=== PATIENT | female | born 1970 | race Caucasian/White ===

== ENCOUNTER 2019-01-13 05:00 | Emergency (ER) | payer OTHER ==
[2019-01-13] MEDS ORDERED: ALBUTEROL NEBULIZED 2.5 MG/3 ML INHALATION STA (06:06)
--- NOTE | 2019-01-13 06:07 | ED ---
General Adult HPI - General Chief complaint: Shortness of Breath Stated complaint: Diff Breathing Time Seen by Provider: 01/13/19 05:31 Source: patient Mode of arrival: wheelchair Limitations: no limitations - History of Present Illness Initial comments: This is a 48-year-old female past medical history of asthma who also still smokes cigarettes daily. The patient presents to the emergency department today for evaluation of shortness of breath that has lasted throughout the night. Patient reports feeling as though she can't catch a deep breath. She also states that she began to feel like she couldn't swallow properly and had a look down her told her chin down to swallow. However that has resolved. Patient denies any chest pain, exertional symptoms, cough or recent illness. She denies any formal diagnosis of COPD though she did have asthma she reports she has not had an exacerbation in a number of years. She does not have any medications at home for asthma. - Related Data Home Medications Medication Instructions Recorded Confirmed Atorvastatin [Lipitor] 80 mg PO HS 01/13/19 01/13/19 Cyclobenzaprine [Flexeril] 10 mg PO TID 01/13/19 01/13/19 Furosemide [Lasix] 20 mg PO DAILY 01/13/19 01/13/19 Gabapentin [Neurontin] 100 mg PO BID 01/13/19 01/13/19 HYDROcodone/APAP 10-325MG [[place] 1 tab PO Q6HR PRN 01/13/19 01/13/19 10-325] Loratadine [Claritin] 10 mg PO DAILY PRN 01/13/19 01/13/19 Allergies Allergy/AdvReac Type Severity Reaction Status Date / Time amoxicillin Allergy Itching Verified 01/13/19 07:37 Review of Systems ROS Statement: Those systems with pertinent positive or pertinent negative responses have been documented in the HPI. ROS Other: All systems not noted in ROS Statement are negative. Past Medical History Past Medical History: Hyperlipidemia Additional Past Medical History / Comment(s): back pain History of Any Multi-Drug Resistant Organisms: None Reported Past Surgical History: Cholecystectomy, Orthopedic Surgery, Tubal Ligation Additional Past Surgical History / Comment(s): right knee, S1 L5 LS laminectomy Past Psychological History: No Psychological Hx Reported Smoking Status: Current every day smoker Past Alcohol Use History: None Reported Past Drug Use History: None Reported General Exam - General Exam Comments Initial Comments: Physical Exam GENERAL: Patient is well-developed and well-nourished. Patient is nontoxic and well-hydrated and is in no distress. HENT: Normocephalic, Atraumatic. EYES: PERRL, EOMI PULMONARY: Unlabored respirations. No audible rales rhonchi or wheezing was noted. CARDIOVASCULAR: There is a regular rate and rhythm without any murmurs gallops or rubs. ABDOMEN: Soft and nontender with normal bowel sounds. SKIN: Skin is clear with no lesions or rashes and otherwise unremarkable. : Deferred NEUROLOGIC: Patient is alert and oriented x3. Moving all extremities spontaneously MUSCULOSKELETAL: Normal extremities with adequate strength and full range of motion. No lower extremity swelling or edema. No calf tenderness. PSYCHIATRIC: Anxious appearing Limitations: no limitations Course Vital Signs 01/13/19 01/13/19 01/13/19 05:06 05:09 06:24 Temperature 98.3 F Pulse Rate 96 88 Respiratory 19 18 20 Rate Blood Pressure 163/94 O2 Sat by Pulse 96 Oximetry 01/13/19 01/13/19 06:34 07:29 Temperature 98.6 F Pulse Rate 90 92 Respiratory 20 19 Rate Blood Pressure 168/85 O2 Sat by Pulse 96 Oximetry EKG Findings - EKG Comments: EKG Findings:: KG was obtained due to complaint of trouble breathing. EKG was obtained at 5:31 AM, rate is 93 rhythm is sinus, there are P and T-wave inversions in V1 no acute ST elevations or depressions no evidence of acute ischemia or infarction. Medical Decision Making - Medical Decision Making The patient was seen and evaluated, history is obtained from the patient As the patient has had multiple hours of feeling as though she cannot catch her breath. She reports that that improved upon arrival in the emergency department EKG is nonischemic no tachycardia Labs resulted witn abnormalities evaluated after receiving a breathing treatment. She reports complete resolution of her symptoms. Patient's has brought her [employer] and she is eating breakfast at bedside. Patient's resting comfortably and is comfortable with the plan for discharge home. All questions pertaining care were answered return parameters were discussed patient was discharged home in stable condition - Lab Data Result diagrams: 01/13/19 06:18 01/13/19 06:18 Lab Results 01/13/19 01/13/19 01/13/19 Range/Units 06:18 06:18 06:18 WBC 9.4 (3.8-10.6) k/uL RBC 5.01 (3.80-5.40) m/uL Hgb 12.8 (11.4-16.0) gm/dL Hct 40.6 (34.0-46.0) % MCV 80.9 (80.0-100.0) fL MCH 25.5 (25.0-35.0) pg MCHC 31.5 (31.0-37.0) g/dL RDW 16.5 H (11.5-15.5) % Plt Count 232 (150-450) k/uL Neutrophils % 78 % Lymphocytes % 12 % Monocytes % 6 % Eosinophils % 2 % Basophils % 0 % Neutrophils # 7.3 (1.3-7.7) k/uL Lymphocytes # 1.1 (1.0-4.8) k/uL Monocytes # 0.6 (0-1.0) k/uL Eosinophils # 0.2 (0-0.7) k/uL Basophils # 0.0 (0-0.2) k/uL Anisocytosis Slight PT 9.7 (9.0-12.0) sec INR 0.9 (<1.2) APTT 24.0 (22.0-30.0) sec Sodium 139 (137-145) mmol/L Potassium 4.2 (3.5-5.1) mmol/L Chloride 107 (98-107) mmol/L Carbon Dioxide 25 (22-30) mmol/L Anion Gap 7 mmol/L BUN 7 (7-17) mg/dL Creatinine 0.76 (0.52-1.04) mg/dL Est GFR (CKD-EPI)AfAm >90 (>60 ml/min/1.73 sqM) Est GFR (CKD-EPI)NonAf >90 (>60 ml/min/1.73 sqM) Glucose 120 H (74-99) mg/dL Calcium 9.3 (8.4-10.2) mg/dL Magnesium 2.2 (1.6-2.3) mg/dL Total Bilirubin 0.3 (0.2-1.3) mg/dL AST 28 (14-36) U/L ALT 21 (9-52) U/L Alkaline Phosphatase 103 (38-126) U/L Troponin I (0.000-0.034) ng/mL Total Protein 7.3 (6.3-8.2) g/dL Albumin 4.2 (3.5-5.0) g/dL 01/13/19 Range/Units 06:18 WBC (3.8-10.6) k/uL RBC (3.80-5.40) m/uL Hgb (11.4-16.0) gm/dL Hct (34.0-46.0) % MCV (80.0-100.0) fL MCH (25.0-35.0) pg MCHC (31.0-37.0) g/dL RDW (11.5-15.5) % Plt Count (150-450) k/uL Neutrophils % % Lymphocytes % % Monocytes % % Eosinophils % % Basophils % % Neutrophils # (1.3-7.7) k/uL Lymphocytes # (1.0-4.8) k/uL Monocytes # (0-1.0) k/uL Eosinophils # (0-0.7) k/uL Basophils # (0-0.2) k/uL Anisocytosis PT (9.0-12.0) sec INR (<1.2) APTT (22.0-30.0) sec Sodium (137-145) mmol/L Potassium (3.5-5.1) mmol/L Chloride (98-107) mmol/L Carbon Dioxide (22-30) mmol/L Anion Gap mmol/L BUN (7-17) mg/dL Creatinine (0.52-1.04) mg/dL Est GFR (CKD-EPI)AfAm (>60 ml/min/1.73 sqM) Est GFR (CKD-EPI)NonAf (>60 ml/min/1.73 sqM) Glucose (74-99) mg/dL Calcium (8.4-10.2) mg/dL Magnesium (1.6-2.3) mg/dL Total Bilirubin (0.2-1.3) mg/dL AST (14-36) U/L ALT (9-52) U/L Alkaline Phosphatase (38-126) U/L Troponin I <0.012 (0.000-0.034) ng/mL Total Protein (6.3-8.2) g/dL Albumin (3.5-5.0) g/dL Disposition Clinical Impression: SOB (shortness of breath) Disposition: HOME SELF-CARE Condition: Stable Instructions (If sedation given, give patient instructions): Asthma (ED) Is patient prescribed a controlled substance at d/c from ED?: No Referrals: [facility] [Primary Care Provider] - 1-2 days
[2019-01-13 06:30] LABS: Anisocytosis Slight; Basophils % (A) 0 %; Eosinophils # (A) 0.2 k/uL (0-0.7); Eosinophils % (A) 2 %; HCT 40.6 % (34.0-46.0); HGB 12.8 gm/dL (11.4-16.0); Lymphocytes # (A) 1.1 k/uL (1.0-4.8); Lymphocytes % (A) 12 %; MCH 25.5 pg (25.0-35.0); MCHC 31.5 g/dL (31.0-37.0); MCV 80.9 fL (80.0-100.0); Mean Platelet Volume 8.2; Monocytes # (A) 0.6 k/uL (0-1.0); Monocytes % (A) 6 %; Neutrophils # (A) 7.3 k/uL (1.3-7.7); Neutrophils % (A) 78 %; Platelet Count 232 k/uL (150-450); RBC 5.01 m/uL (3.80-5.40); RDW 16.5 % (11.5-15.5); WBC 9.4 k/uL (3.8-10.6)
[2019-01-13 06:34] LABS: INR 0.9 (<1.2); Prothrombin Time 9.7 sec (9.0-12.0)
[2019-01-13 06:36] LABS: ALT 21 U/L (9-52); AST 28 U/L (14-36); African American GFR (CKD) >90 (>60 ml/min/1.73 sqM); Albumin 4.2 g/dL (3.5-5.0); Alkaline Phosphatase 103 U/L (38-126); Anion Gap 7 mmol/L; Blood Urea Nitrogen 7 mg/dL (7-17); Calcium 9.3 mg/dL (8.4-10.2); Carbon Dioxide 25 mmol/L (22-30); Chloride 107 mmol/L (98-107); Glucose 120 mg/dL (74-99); Magnesium 2.2 mg/dL (1.6-2.3); Potassium 4.2 mmol/L (3.5-5.1); Sodium 139 mmol/L (137-145); Total Bilirubin 0.3 mg/dL (0.2-1.3); Total Protein 7.3 g/dL (6.3-8.2)
--- NOTE | 2019-01-13 06:38 | XR ---
EXAM: XR Chest, 2 Views CLINICAL HISTORY: ITS.REASON XR Reason: difficulty breathing TECHNIQUE: Frontal and lateral views of the chest. COMPARISON: No relevant prior studies available. FINDINGS: Lungs: Unremarkable. No consolidation. Pleural space: Unremarkable. No pneumothorax. Heart: Unremarkable. No cardiomegaly. Mediastinum: Unremarkable. Bones/joints: Unremarkable. IMPRESSION: No evidence of acute cardiopulmonary disease.
[2019-01-13 07:31] VITALS: BP 168/85; PULSE 92; RESP 19; TEMP 98.6
== END 2019-01-13 07:46 | disposition home or self-care (01) ==
LOC: EC 05:00
DX: R06.02 Shortness of breath (principal); E78.5 Hyperlipidemia, unspecified; J45.909 Unspecified asthma, uncomplicated; F17.210 Nicotine dependence, cigarettes, uncomplicated; Z90.49 Acquired absence of other specified parts of digestive tract; Z98.51 Tubal ligation status; Z98.890 Other specified postprocedural states; Z79.899 Other long term (current) drug therapy; Z88.0 Allergy status to penicillin
CPT/HCPCS: 36415; 71046; 80053; 83735; 84484; 85025; 85610; 85730; 93005; 94640; 99285

== ENCOUNTER 2019-01-22 15:28 | Observation (INO) | payer OTHER ==
[2019-01-22 16:44] LABS: Anisocytosis Slight; Basophils % (A) 0 %; Eosinophils # (A) 0.1 k/uL (0-0.7); Eosinophils % (A) 1 %; HGB 12.8 gm/dL (11.4-16.0); Hypochromasia Slight; Lymphocytes # (A) 1.4 k/uL (1.0-4.8); Lymphocytes % (A) 8 %; MCHC 31.2 g/dL (31.0-37.0); MCV 83.5 fL (80.0-100.0); Mean Platelet Volume 8.8; Monocytes % (A) 6 %; Neutrophils % (A) 84 %; Platelet Count 282 k/uL (150-450); RBC 4.92 m/uL (3.80-5.40); RDW 17.2 % (11.5-15.5); WBC 17.9 k/uL (3.8-10.6)
[2019-01-22] MEDS ORDERED: IPRATROPIUM-ALBUTEROL 3 ML NEB INHALATION STA (16:46)
[2019-01-22 16:52] LABS: ALT 12 U/L (9-52); AST 26 U/L (14-36); African American GFR (CKD) >90 (>60 ml/min/1.73 sqM); Albumin 4.3 g/dL (3.5-5.0); Alkaline Phosphatase 84 U/L (38-126); Anion Gap 12 mmol/L; Blood Urea Nitrogen 8 mg/dL (7-17); Calcium 9.4 mg/dL (8.4-10.2); Carbon Dioxide 22 mmol/L (22-30); Chloride 106 mmol/L (98-107); Glucose 107 mg/dL (74-99); Potassium 4.2 mmol/L (3.5-5.1); Sodium 140 mmol/L (137-145); Total Bilirubin 0.2 mg/dL (0.2-1.3); Total Protein 7.8 g/dL (6.3-8.2)
[2019-01-22 17:04] LABS: INR 0.9 (<1.2); Prothrombin Time 9.5 sec (9.0-12.0)
[2019-01-22 17:06] LABS: Partial Thromboplastin Time 21.1 sec (22.0-30.0)
[2019-01-22 17:07] LABS: Magnesium 2.3 mg/dL (1.6-2.3); Phosphorus 3.3 mg/dL (2.5-4.5)
--- NOTE | 2019-01-22 17:09 | XR ---
EXAMINATION: XR chest 2V DATE AND TIME: 01/22/2019 4:51 PM CLINICAL INDICATION: PHH; Pain TECHNIQUE: Departmental protocol COMPARISON: 01/13/2019 FINDINGS: The lungs are clear. The pleural spaces are negative. The cardiac silhouette is not enlarged. The remainder of the mediastinal silhouette is unremarkable. The skeletal structures and soft tissues are negative for acute findings. IMPRESSION: Stable appearance when compared to the 01/13/2019 radiographs.
[2019-01-22 17:18] LABS: D-Dimer 0.26 mg/L FEU (<0.60)
--- NOTE | 2019-01-22 18:13 | ED ---
SOB HPI - General Chief Complaint: Shortness of Breath Stated Complaint: trouble breathing, Dehydration Time Seen by Provider: 01/22/19 16:39 Source: patient, RN notes reviewed, old records reviewed Mode of arrival: ambulatory Limitations: no limitations - History of Present Illness Initial Comments: This is a 48-year-old female the ER for evaluation shortness of breath cough and congestion, history of asthma with no recent hospital admissions. Patient has been seen in urgent care as well as here in the ER the last week and half for evaluation of similar complaints, denying chest pain recent travel history or sick contacts also having lower [place] edema. has no recent travel history or sick contacts that she knows. No history of DVTs. Patient's currently on outpatient steroids antibiotics and breathing treatment with no help MD Complaint: shortness of breath, cough -: week(s) Severity: moderate Severity scale (1-10): 5 Consistency: constant Improves With: rest Worsens With: exertion Known History Of: asthma Context: recent URI Associated Symptoms: cough, other (leg edema) Treatments Prior to Arrival: none - Related Data Home Medications Medication Instructions Recorded Confirmed Atorvastatin [Lipitor] 80 mg PO HS 01/13/19 01/22/19 Cyclobenzaprine [Flexeril] 10 mg PO TID 01/13/19 01/22/19 Furosemide [Lasix] 20 mg PO DAILY 01/13/19 01/22/19 Gabapentin [Neurontin] 100 mg PO BID 01/13/19 01/22/19 HYDROcodone/APAP 10-325MG [[place] 1 tab PO Q6HR PRN 01/13/19 01/22/19 10-325] Loratadine [Claritin] 10 mg PO DAILY PRN 01/13/19 01/22/19 Clindamycin HCl [Cleocin] 150 mg PO TID 01/22/19 01/22/19 Oxymetazoline 0.05% Nasl [place] 1 spray EA NOSTRIL BID PRN 01/22/19 01/22/19 [Afrin 0.05% Nasal [place]] methylPREDNISolone [Medrol Dose See Taper PO DIRECTED 01/22/19 01/22/19 Pack] Allergies Allergy/AdvReac Type Severity Reaction Status Date / Time amoxicillin Allergy Itching Verified 01/22/19 16:48 Review of Systems ROS Statement: Those systems with pertinent positive or pertinent negative responses have been documented in the HPI. ROS Other: All systems not noted in ROS Statement are negative. Past Medical History Past Medical History: Hyperlipidemia Additional Past Medical History / Comment(s): back pain History of Any Multi-Drug Resistant Organisms: None Reported Past Surgical History: Cholecystectomy, Orthopedic Surgery, Tubal Ligation Additional Past Surgical History / Comment(s): right knee, S1 L5 LS laminectomy Past Psychological History: No Psychological Hx Reported Smoking Status: Current every day smoker Past Alcohol Use History: None Reported Past Drug Use History: None Reported General Exam Limitations: no limitations General appearance: alert, in no apparent distress Head exam: Present: atraumatic, normocephalic, normal inspection Eye exam: Present: normal appearance, PERRL, EOMI. Absent: scleral icterus, conjunctival injection, periorbital swelling ENT exam: Present: normal exam, mucous membranes moist Neck exam: Present: normal inspection. Absent: tenderness, meningismus, lymphadenopathy Respiratory exam: Present: normal lung sounds bilaterally, wheezes. Absent: respiratory distress, rales, rhonchi, stridor Cardiovascular Exam: Present: normal rhythm, tachycardia, normal heart sounds. Absent: systolic murmur, diastolic murmur, rubs, gallop, clicks GI/Abdominal exam: Present: soft, normal bowel sounds. Absent: distended, tenderness, guarding, rebound, rigid Extremities exam: Present: normal inspection, full ROM, normal capillary refill. Absent: tenderness, pedal edema, joint swelling, calf tenderness Back exam: Present: normal inspection Neurological exam: Present: alert, oriented X3, CN II-XII intact Psychiatric exam: Present: normal affect, normal mood Skin exam: Present: warm, dry, intact, normal color. Absent: rash Course Vital Signs 01/22/19 01/22/19 01/22/19 15:34 16:59 17:07 Temperature 98.7 F Pulse Rate 105 H 88 86 Respiratory 16 Rate Blood Pressure 166/79 O2 Sat by Pulse 97 Oximetry 01/22/19 18:20 Temperature 98.8 F Pulse Rate 91 Respiratory 18 Rate Blood Pressure 148/85 O2 Sat by Pulse 99 Oximetry - Reevaluation(s) Reevaluation #1: 01/22/19 18:27 Medical record and prior ER visit in urgent care visit is reviewed for same problem Reevaluation #2: 01/22/19 18:27 A she has been on outpatient steroids and antibiotics for about a week and half with no improvement Reevaluation #3: 01/22/19 18:27 Patient still having shortness of breath is not feeling good to go home Medical Decision Making - Medical Decision Making 48 female the ER for evaluation of persistent shortness of breath and bronchitis we'll admit for steroids and breathing treatment, patient also having lower extremity edema, we'll do diuresis - Lab Data Result diagrams: 01/22/19 16:05 01/22/19 16:05 Lab Results 01/22/19 01/22/19 01/22/19 Range/Units 16:05 16:05 16:05 WBC 17.9 H (3.8-10.6) k/uL RBC 4.92 (3.80-5.40) m/uL Hgb 12.8 (11.4-16.0) gm/dL Hct 41.0 (34.0-46.0) % MCV 83.5 (80.0-100.0) fL MCH 26.0 (25.0-35.0) pg MCHC 31.2 (31.0-37.0) g/dL RDW 17.2 H (11.5-15.5) % Plt Count 282 (150-450) k/uL Neutrophils % 84 % Lymphocytes % 8 % Monocytes % 6 % Eosinophils % 1 % Basophils % 0 % Neutrophils # 15.0 H (1.3-7.7) k/uL Lymphocytes # 1.4 (1.0-4.8) k/uL Monocytes # 1.0 (0-1.0) k/uL Eosinophils # 0.1 (0-0.7) k/uL Basophils # 0.0 (0-0.2) k/uL Hypochromasia Slight Anisocytosis Slight PT (9.0-12.0) sec INR (<1.2) APTT (22.0-30.0) sec D-Dimer (<0.60) mg/L FEU Sodium 140 (137-145) mmol/L Potassium 4.2 (3.5-5.1) mmol/L Chloride 106 (98-107) mmol/L Carbon Dioxide 22 (22-30) mmol/L Anion Gap 12 mmol/L BUN 8 (7-17) mg/dL Creatinine 0.74 (0.52-1.04) mg/dL Est GFR (CKD-EPI)AfAm >90 (>60 ml/min/1.73 sqM) Est GFR (CKD-EPI)NonAf >90 (>60 ml/min/1.73 sqM) Glucose 107 H (74-99) mg/dL Calcium 9.4 (8.4-10.2) mg/dL Phosphorus (2.5-4.5) mg/dL Magnesium (1.6-2.3) mg/dL Total Bilirubin 0.2 (0.2-1.3) mg/dL AST 26 (14-36) U/L ALT 12 (9-52) U/L Alkaline Phosphatase 84 (38-126) U/L Troponin I (0.000-0.034) ng/mL NT-Pro-B Natriuret Pep 106 pg/mL Total Protein 7.8 (6.3-8.2) g/dL Albumin 4.3 (3.5-5.0) g/dL 01/22/19 01/22/19 01/22/19 Range/Units 16:05 16:05 16:05 WBC (3.8-10.6) k/uL RBC (3.80-5.40) m/uL Hgb (11.4-16.0) gm/dL Hct (34.0-46.0) % MCV (80.0-100.0) fL MCH (25.0-35.0) pg MCHC (31.0-37.0) g/dL RDW (11.5-15.5) % Plt Count (150-450) k/uL Neutrophils % % Lymphocytes % % Monocytes % % Eosinophils % % Basophils % % Neutrophils # (1.3-7.7) k/uL Lymphocytes # (1.0-4.8) k/uL Monocytes # (0-1.0) k/uL Eosinophils # (0-0.7) k/uL Basophils # (0-0.2) k/uL Hypochromasia Anisocytosis PT 9.5 (9.0-12.0) sec INR 0.9 (<1.2) APTT 21.1 L (22.0-30.0) sec D-Dimer 0.26 (<0.60) mg/L FEU Sodium (137-145) mmol/L Potassium (3.5-5.1) mmol/L Chloride (98-107) mmol/L Carbon Dioxide (22-30) mmol/L Anion Gap mmol/L BUN (7-17) mg/dL Creatinine (0.52-1.04) mg/dL Est GFR (CKD-EPI)AfAm (>60 ml/min/1.73 sqM) Est GFR (CKD-EPI)NonAf (>60 ml/min/1.73 sqM) Glucose (74-99) mg/dL Calcium (8.4-10.2) mg/dL Phosphorus 3.3 (2.5-4.5) mg/dL Magnesium 2.3 (1.6-2.3) mg/dL Total Bilirubin (0.2-1.3) mg/dL AST (14-36) U/L ALT (9-52) U/L Alkaline Phosphatase (38-126) U/L Troponin I <0.012 (0.000-0.034) ng/mL NT-Pro-B Natriuret Pep pg/mL Total Protein (6.3-8.2) g/dL Albumin (3.5-5.0) g/dL - Radiology Data Radiology results: report reviewed (Chest x-rays negative for acute disease), image reviewed Disposition Clinical Impression: Acute exacerbation of chronic obstructive airways disease, SOB (shortness of breath), Leg edema, Failure of outpatient treatment Disposition: ADMITTED IP TO THIS HOSP Condition: Good Is patient prescribed a controlled substance at d/c from ED?: No Referrals: [facility],Clinic [Primary Care Provider] - 1-2 days
[2019-01-22] MEDS ORDERED: methylPREDNISolone SOD SUCCI 125 MG/2 ML VIAL IV STA (18:25)
[2019-01-22] MEDS ORDERED: AZITHROMYCIN 500 MG in SODIUM CHLORIDE 0.9% 250 ML IVPB STA (18:26)
[2019-01-22] MEDS: IPRATROPIUM-ALBUTEROL 3 ML NEB INHALATION SCH (18:58)
--- NOTE | 2019-01-22 19:24 | CT ---
EXAMINATION TYPE: CT angio chest with contrast and with 3-D reconstruction renderings DATE OF EXAM: 01/22/2019 6:45 PM COMPARISON: None HISTORY: Shortness of breath. CT DLP: 390.6 mGycm Automated exposure control for dose reduction was used. CONTRAST: CTA scan of the thorax is performed with IV Contrast, patient injected with 80ml mL of Isovue 370, pu lmonary embolism protocol. Three-D reconstructions. FINDINGS: Skeletal structures: Unremarkable. Airways and lungs: Clear and well expanded bilaterally. Incidental 6 millimeter subpleural soft tissue density pulmonary nodule noted in the superior segment right lower lobe. Pleural spaces: Negative. Mediastinum/alex: The pulmonary arterial tree is well opacified and negative for filling defects to s uggest pulmonary embolism. No acute aortic pathology. No cardiomegaly or pericardial effusion. No davey nopathy. Other: Unremarkable. IMPRESSION: NEGATIVE FOR PE; NO ACUTE PROCESS. Incidental: 6 mm pulmonary nodule; would suggest six-month follow-up noncontrast chest CT
--- NOTE | 2019-01-22 21:12 | US ---
EXAMINATION TYPE: US venous doppler duplex LE DATE OF EXAM: 01/22/2019 6:29 PM COMPARISON: NONE CLINICAL HISTORY: Pain. Pain per order. Swelling bilateral legs. No HX of DVT. Pt not on blood thinne rs. SIDE PERFORMED: Bilateral TECHNIQUE: The lower extremity deep venous system is examined utilizing real time linear array sonog bowen with graded compression, doppler sonography and color-flow sonography. VESSELS IMAGED: External Iliac Vein (EIV) Common Femoral Vein Deep Femoral Vein Greater Saphenous Vein * Femoral Vein Popliteal Vein Small Saphenous Vein * Proximal Calf Veins (* superficial vessels) IMPRESSION: Negative for DVT, bilateral lower extremities.
[2019-01-22] MEDS: FUROSEMIDE 10 MG/ML 4 ML VIAL IV SCH (21:32)
[2019-01-22] MEDS ORDERED: OXYMETAZOLINE 0.05% NASL SPRAY 1 SPRAY BOTTLE EA NOSTRIL PRN (22:10)
[2019-01-22] MEDS ORDERED: HYDROcodone/APAP 10-325MG 1 EACH TAB PO PRN (22:10)
[2019-01-22] MEDS ORDERED: LORATADINE 10 MG TAB PO PRN (22:10)
[2019-01-22] MEDS: CYCLOBENZAPRINE 10 MG TAB PO SCH (22:43)
[2019-01-22] MEDS: GABAPENTIN 100 MG CAP PO SCH (22:43)
[2019-01-23] MEDS: methylPREDNISolone SOD SUCCI 125 MG/2 ML VIAL IV SCH ×3 (00:32→12:43)
[2019-01-23] MEDS: GABAPENTIN 100 MG CAP PO SCH (08:45)
[2019-01-23] MEDS: CYCLOBENZAPRINE 10 MG TAB PO SCH (08:45)
[2019-01-23] MEDS: FUROSEMIDE 10 MG/ML 4 ML VIAL IV SCH (08:45)
[2019-01-23] MEDS ORDERED: AZITHROMYCIN 500 MG TAB PO SCH (09:00)
[2019-01-23] MEDS: IPRATROPIUM-ALBUTEROL 3 ML NEB INHALATION SCH ×2 (09:50→13:52)
[2019-01-23 10:09] VITALS: RESP 20
[2019-01-23 11:32] VITALS: BMI 29.0
--- NOTE | 2019-01-23 14:13 | P.DS ---
Providers Date of admission: 01/22/19 18:25 Attending physician: Tonya Cabrera Primary care physician: [facility] Course: As mentioned in HPI Patient Condition at Discharge: Good Plan - Discharge Summary Discharge Rx Participant: No New Discharge Prescriptions: New Amoxic-Pot Clav 875-125Mg [Augmentin 875-125] 1 tab PO BID 3 Days #6 tab Sodium Chloride [[place]] 1 spray EA NOSTRIL TID #30 ml Discontinued Clindamycin HCl [Cleocin] 150 mg PO TID No Action Loratadine [Claritin] 10 mg PO DAILY PRN PRN Reason: Pain HYDROcodone/APAP 10-325MG [[place] 10-325] 1 tab PO Q4-6H PRN PRN Reason: Pain Gabapentin [Neurontin] 100 mg PO BID Furosemide [Lasix] 20 mg PO DAILY Cyclobenzaprine [Flexeril] 10 mg PO TID Atorvastatin [Lipitor] 80 mg PO HS Oxymetazoline 0.05% Nasl [place] [Afrin 0.05% Nasal [place]] 1 spray EA NOSTRIL BID PRN PRN Reason: Nasal Congestion methylPREDNISolone [Medrol Dose Pack] See Taper PO DIRECTED Discharge Medication List Atorvastatin [Lipitor] 80 mg PO HS 01/13/19 [History] Cyclobenzaprine [Flexeril] 10 mg PO TID 01/13/19 [History] Furosemide [Lasix] 20 mg PO DAILY 01/13/19 [History] Gabapentin [Neurontin] 100 mg PO BID 01/13/19 [History] HYDROcodone/APAP 10-325MG [[place] 10-325] 1 tab PO Q4-6H PRN 01/13/19 [History] Loratadine [Claritin] 10 mg PO DAILY PRN 01/13/19 [History] Oxymetazoline 0.05% Nasl [place] [Afrin 0.05% Nasal [place]] 1 spray EA NOSTRIL BID PRN 01/22/19 [History] methylPREDNISolone [Medrol Dose Pack] See Taper PO DIRECTED 01/22/19 [History] Amoxic-Pot Clav 875-125Mg [[place] 875-125] 1 tab PO BID 3 Days #6 tab 01/23/19 [Rx] Sodium Chloride [[place]] 1 spray EA NOSTRIL TID #30 ml 01/23/19 [Rx] Follow up Appointment(s)/Referral(s): Chet Cagle MD [STAFF PHYSICIAN] - 2 Weeks [facility],Clinic [Primary Care Provider] - 3 Days
--- NOTE | 2019-01-23 14:13 | P.HPIM ---
History of Present Illness 48-year-old female came in with the complaints of congestion. Patient does have upper respiratory symptoms including sore throat without any evidence of streptococcal infection does have congestion of nose and probably ALLERGIC sinu sitis patient is already on Solu-Medrol, loratadine and oxymetazoline as an outpatient. Patient is also on clindamycin.Patient is admitted for possible COPD although patient is saturating well on room air is a smoker patient doesn't have any wheezing or do not believe patient has COPD exacerbation at this time. Patient will be discharged although we'll try and change her patient antibiotic to Augmentin although I believe her Sinusitis is mostly ALLERGY if she doesn't improve with the above-mentioned medications she may benefit from evaluation by ENT. I do not believe patient is an COPD exacerbation will not need further hospitalization. Smoking cessation counseling was provided. Review of Systems REVIEW OF SYSTEMS: CONSTITUTIONAL: No fever, no malaise, no fatigue. HEENT: No recent visual problems or hearing problems. CARDIOVASCULAR: No chest pain, orthopnea, PND, no palpitations, no syncope. PULMONARY: No shortness of breath, no cough, no hemoptysis. GASTROINTESTINAL: No diarrhea, no nausea, no vomiting, no abdominal pain. NEUROLOGICAL: No headaches, no weakness, no numbness. HEMATOLOGICAL: Denies any bleeding or petechiae. GENITOURINARY: Denies any burning micturition, frequency, or urgency. MUSCULOSKELETAL/RHEUMATOLOGICAL: Denies any joint pain, swelling, or any muscle pain. ENDOCRINE: Denies any polyuria or polydipsia. The rest of the 14-point review of systems is negative. Past Medical History Past Medical History: COPD, Hyperlipidemia Additional Past Medical History / Comment(s): back pain, History of Any Multi-Drug Resistant Organisms: None Reported Past Surgical History: Cholecystectomy, Orthopedic Surgery, Tubal Ligation Additional Past Surgical History / Comment(s): right knee, S1 L5 LS laminectomy Past Anesthesia/Blood Transfusion Reactions: No Reported Reaction Past Psychological History: No Psychological Hx Reported Smoking Status: Current every day smoker Past Alcohol Use History: None Reported Past Drug Use History: None Reported Additional Drug Use History / Comment(s): smokes 1.5ppd - Past Family History Mother Family Medical History: No Reported History Medications and Allergies Home Medications Medication Instructions Recorded Confirmed Type Atorvastatin [Lipitor] 80 mg PO HS 01/13/19 01/22/19 History Cyclobenzaprine [Flexeril] 10 mg PO TID 01/13/19 01/22/19 History Furosemide [Lasix] 20 mg PO DAILY 01/13/19 01/22/19 History Gabapentin [Neurontin] 100 mg PO BID 01/13/19 01/22/19 History HYDROcodone/APAP 10-325MG [[place] 1 tab PO Q4-6H PRN 01/13/19 01/22/19 History 10-325] Loratadine [Claritin] 10 mg PO DAILY PRN 01/13/19 01/22/19 History Oxymetazoline 0.05% Nasl [place] 1 spray EA NOSTRIL BID PRN 01/22/19 01/22/19 History [Afrin 0.05% Nasal [place]] methylPREDNISolone [Medrol Dose See Taper PO DIRECTED 01/22/19 01/22/19 History Pack] Amoxic-Pot Clav 875-125Mg 1 tab PO BID 3 Days #6 tab 01/23/19 Rx [Augmentin 875-125] Sodium Chloride [[place]] 1 spray EA NOSTRIL TID #30 ml 01/23/19 Rx Allergies Allergy/AdvReac Type Severity Reaction Status Date / Time amoxicillin Allergy Intermediate Itching Verified 01/22/19 20:19 Physical Exam Vitals: Vital Signs Temp Pulse Pulse Resp BP BP Pulse Ox 01/23/19 13:52 92 01/23/19 10:00 96 01/23/19 09:50 92 01/23/19 08:51 98.1 F 86 20 122/76 96 01/22/19 23:00 98.1 F 90 18 124/66 94 L 01/22/19 20:00 98.2 F 93 18 147/74 99 01/22/19 19:08 84 01/22/19 18:58 84 01/22/19 18:20 98.8 F 91 18 148/85 99 01/22/19 17:07 86 01/22/19 16:59 88 01/22/19 15:34 98.7 F 105 H 16 166/79 97 Intake and Output 01/22/19 01/23/19 01/23/19 22:59 06:59 14:59 Intake Total 1740 0 Output Total 2200 1750 Balance -460 -1750 Intake: Oral 1740 0 Output: Urine 2200 1750 Other: Weight 81.647 kg 81.647 kg PHYSICAL EXAMINATION: GENERAL: The patient is alert and oriented x3, not in any acute distress. Well developed, well nourished. HEENT: Pupils are round and equally reacting to light. EOMI. No scleral icterus. No conjunctival pallor. Normocephalic, atraumatic. Sinus congestion CARDIOVASCULAR: S1 and S2 present. No murmurs, rubs, or gallops. PULMONARY: Chest is clear to auscultation, no wheezing or crackles. ABDOMEN: Soft, nontender, nondistended, normoactive bowel sounds. No palpable organomegaly. MUSCULOSKELETAL: No joint swelling or deformity. EXTREMITIES: No cyanosis, clubbing, or pedal edema. NEUROLOGICAL: Gross neurological examination did not reveal any focal deficits. SKIN: No rashes. Results CBC & Chem 7: 01/22/19 16:05 01/22/19 16:05 Labs: Abnormal Lab Results - Last 24 Hours (Table) 01/22/19 01/22/19 01/22/19 Range/Units 16:05 16:05 16:05 WBC 17.9 H (3.8-10.6) k/uL RDW 17.2 H (11.5-15.5) % Neutrophils # 15.0 H (1.3-7.7) k/uL APTT 21.1 L (22.0-30.0) sec Glucose 107 H (74-99) mg/dL Thrombosis Risk Factor Assmnt - Choose All That Apply Any of the Below Risk Factors Present?: Yes Each Factor Represents 1 point: Age 41-60 years, Obesity (BMI >25), Swollen legs (current) Other Risk Factors: No Other congenital or acquired thrombophilia - If yes, enter type in comment: No Thrombosis Risk Factor Assessment Total Risk Factor Score: 3 Thrombosis Risk Factor Assessment Level: Moderate Risk Assessment and Plan Plan: -Possibility of sinusitis no evidence of COPD patient will be discharged will continue her Medrol Dosepak along with other medications for sinusitis as men tioned above patient will be switched to Augmentin patient the does not have any evidence of COPD exacerbation at this time. -Incidental finding of 6 mm pulmonary nodule for which patient will need a follow-up computed tomography scan CT scan of the chest, patient will be referred to pulmonology as an outpatient -Leukocytosis secondary to weaning dose of steroids steroids she is taking for sinusitis -COPD without any significant exacerbation at this time -Hyperlipidemia -Chronic low back pain -Nicotine abuse: Counseling was provided
[2019-01-23 14:43] VITALS: BP 118/80; PULSE 91; TEMP 98
[2019-01-23] MEDS ORDERED: ATORVASTATIN 80 MG TAB PO SCH (21:00)
== END 2019-01-23 15:58 | disposition home or self-care (01) ==
LOC: EC 15:28 → 6PED 18:25
PROVIDERS: ADMIT Hospitalist; ATTEND Hospitalist
DX: J06.9 Acute upper respiratory infection, unspecified (principal); E78.5 Hyperlipidemia, unspecified; M79.89 Other specified soft tissue disorders; R91.1 Solitary pulmonary nodule; D72.829 Elevated white blood cell count, unspecified; J44.9 Chronic obstructive pulmonary disease, unspecified; E86.0 Dehydration; G89.29 Other chronic pain; M54.5 Low back pain; F17.210 Nicotine dependence, cigarettes, uncomplicated; E66.9 Obesity, unspecified; Z68.29 Body mass index [BMI] 29.0-29.9, adult; Z90.49 Acquired absence of other specified parts of digestive tract; Z79.899 Other long term (current) drug therapy; Z88.0 Allergy status to penicillin
CPT/HCPCS: 96366; 96375 ×2; 96376; 96365; 99285; 36415; 94640 ×3; 93005; 85379; 83880; 80053; 83735; 84100; 84484; 85025; 85610; 85730; 71046; 93970; 71275; G0378 ×2; J1940 ×2; J2930 ×2; J0456; Q9967

== ENCOUNTER → 2019-04-08 | Outpatient (CLI) | payer OTHER | END | disposition home or self-care (01) | LOC: CPPFTMAIN 11:22 | PROVIDERS: ATTEND Internal Medicine Critical Care Medicine | DX: I99.8 Other disorder of circulatory system (principal); J44.9 Chronic obstructive pulmonary disease, unspecified | CPT/HCPCS: 94060; 94726; 94729 ==

== ENCOUNTER → 2019-07-28 | Outpatient (CLI) | payer OTHER ==
--- NOTE | 2019-07-28 15:19 | CT ---
EXAMINATION TYPE: CT chest w con DATE OF EXAM: 07/28/2019 COMPARISON: CTA chest January 22, 2019 HISTORY: Lung nodule, abn CT CT DLP: 378.2 mGycm. Automated Exposure Control for Dose Reduction was Utilized. TECHNIQUE: CT scan of the thorax is performed following with IV Contrast, patient injected with 100 mL of Isovue 300. FINDINGS: LUNGS: Background mild to moderate underlying emphysematous changes redemonstrated most prominent in the upper lungs. Stable 5 mm nodule in the superior anterior aspect right lower lobe axial image 29. There is additional 7 x 5 mm subpleural nodule left lower lobe axial image 34 and retrospect this is stable from prior CT axis image 97. Smaller 5 x 4 mm left basilar nodule near the diaphragm axial ermelinda ge 40 in retrospect is stable from prior. No pleural effusion or pneumothorax bilaterally. No new inf iltrate. MEDIASTINUM: There are no greater than 1 cm hilar or mediastinal lymph nodes. No cardiomegaly or pe ricardial effusion is seen. OTHER: Cholecystectomy clips are seen. IMPRESSION: Stable small bilateral nodules as detailed above. No new or enlarging nodules. No new fabian picious acute pulmonary process.
== END | disposition home or self-care (01) ==
LOC: RADCTMAIN 14:05
PROVIDERS: ATTEND Internal Medicine Critical Care Medicine
DX: R91.8 Other nonspecific abnormal finding of lung field (principal); Z88.1 Allergy status to other antibiotic agents
CPT/HCPCS: 71260; Q9967

== ENCOUNTER → 2020-06-07 | Outpatient (CLI) | payer OTHER ==
--- NOTE | 2020-06-07 17:10 | CT ---
EXAMINATION TYPE: CT chest w con DATE OF EXAM: 06/07/2020 COMPARISON: Chest CT January 26, [address] January 22, 2019 HISTORY: Follow up for lung nodule. CT DLP: 555 mGycm. Automated Exposure Control for Dose Reduction was Utilized. TECHNIQUE: CT scan of the thorax is performed following with IV Contrast, patient injected with 100m l mL of Isovue 300. FINDINGS: LUNGS: Background Mild to moderate underlying emphysematous change is redemonstrated. Stable 5 mm ri ght mid lung nodule image 35 unchanged from January 22, 2019 abutting the major fissure. Stable 7 x 5 m m subpleural left lower lobe nodule axial image 45 unchanged from last 2 studies. Stable 4 mm left ba silar nodule axial image 52. No new greater than 4 mm pulmonary nodules or masses. No pleural effusio n or pneumothorax. 1MEDIASTINUM: Stable prominent but subcentimeter bilateral hilar lymph nodes. No cardiomegaly or pe ricardial effusion is seen. OTHER: Cholecystectomy clips are redemonstrated. Liver is low dense consistent with diffuse fatty inf iltration. Accessory right renal artery incidentally noted. IMPRESSION: Stable small nodules presumed benign. No new or enlarging nodules.
== END | disposition home or self-care (01) ==
LOC: RADCTMAIN 16:21
PROVIDERS: ATTEND Internal Medicine Critical Care Medicine
DX: R91.8 Other nonspecific abnormal finding of lung field (principal)
CPT/HCPCS: 71260; Q9967

== ENCOUNTER → 2020-07-08 | Outpatient (CLI) | payer OTHER ==
--- NOTE | 2020-07-08 16:17 | US ---
EXAMINATION TYPE: US carotid duplex BILAT DATE OF EXAM: 07/08/2020 COMPARISON: NONE CLINICAL HISTORY: 50-year-old female I65.23 OCCLUSION AND STENOSIS OF [place] CAROTID ARTERIES. Pt states bruit heard by physician on right side TECHNIQUE: Carotid duplex ultrasound examination. Indirect Doppler criteria was utilized. FINDINGS: EXAM MEASUREMENTS: RIGHT: Peak Systolic Velocity (PSV) cm/sec ----- Right CCA: 70.3 ----- Right ICA: 61.6 ----- Right ECA: 131.5 ICA/CCA ratio: 0.9 RIGHT: End Diastole cm/sec ----- Right CCA: 25.0 ----- Right ICA: 24.6 ----- Right ECA: 31.8 LEFT: Peak Systolic Velocity (PSV) cm/sec ----- Left CCA: 91.9 ----- Left ICA: 99.6 ----- Left ECA: 215.1 ICA/CCA ratio: 1.1 LEFT: End Diastole cm/sec ----- Left CCA: 30.3 ----- Left ICA: 42.4 ----- Left ECA: 50.2 VERTEBRALS (direction of flow): Right Vertebral: Antegrade Left Vertebral: Antegrade Rhythm: Normal Mower Sharpener notes: Elevated velocities bilateral ECA's, otherwise no significant stenosis seen Incidentally, there is a mixed solid cystic, primarily solid nodule within the right lobe of the thyr oid gland measuring 1.3 cm. IMPRESSION: 1. No hemodynamically significant internal carotid artery stenosis on either side. 2. Incidental, primarily solid nodule within the right lobe of the thyroid gland measuring 1.3 cm. Si x-month follow-up can be performed. Criteria for Assigning % of Stenosis / Diameter reduction (Estimation based on the indirect measurements of the internal carotid artery velocities (ICA PSV). 1. Normal (no stenosis)=ICA PSV < 125 cm/s: ratio < 2.0: ICA EDV<40 cm/s. 2. Less than 50% stenosis=ICA PSV < 125 cm/s: ratio < 2.0: ICA EDV<40 cm/s. 3. 50 to 69% stenosis=ICA PSV of 125 to 230 cm/s: ration 2.0 ? 4.0: ICA EDV 40-100 cm/s. 4. Greater than 70% stenosis to near occlusion= ICA PSV > 230 cm/s: ratio > 4.0: ICA EDV > 100 cm/s. 5. Near occlusion= ICA PSV velocities may be low or undetectable: variable ratio and ICA EDV. 6. Total occlusion=unable to detect flow.
== END | disposition home or self-care (01) ==
LOC: RADUSWWP 14:52
DX: I65.23 Occlusion and stenosis of bilateral carotid arteries (principal)
CPT/HCPCS: 93880

== ENCOUNTER → 2020-12-14 | Outpatient (CLI) | payer OTHER ==
--- NOTE | 2020-12-15 10:09 | MM ---
Reason for exam: screening (asymptomatic). Last mammogram was performed 1 year and 4 months ago. History: Benign excisional biopsy of the left breast, 2017. Physical Findings: A clinical breast exam by your physician is recommended on an annual basis and results should be correlated with mammographic findings. MG Screening Mammo w CAD Bilateral CC and MLO view(s) were taken. Prior study comparison: August 25, 2019, mammogram, performed at [facility]. There are scattered fibroglandular densities. Asymmetries. Left bipsy clip. ASSESSMENT: Benign, BI-RAD 2 RECOMMENDATION: Routine screening mammogram of both breasts in 1 year.
== END | disposition home or self-care (01) ==
LOC: RADMAMWWP 09:26
PROVIDERS: ATTEND Family Medicine
DX: Z12.31 Encounter for screening mammogram for malignant neoplasm of breast (principal)
CPT/HCPCS: 77067

== ENCOUNTER → 2020-12-23 | Outpatient (CLI) | payer OTHER ==
--- NOTE | 2020-12-23 10:41 | CT ---
EXAMINATION TYPE: CT chest w con DATE OF EXAM: 12/23/2020 COMPARISON: 06/07/2020 HISTORY: follow up lung nodule CT DLP: 352.8 mGycm Automated exposure control for dose reduction was used. CONTRAST: CT scan of the chest is performed with IV Contrast, patient injected with 100 mL of Isovue 300. FINDINGS: LUNGS: Stable pulmonary nodules noted right upper lobe measuring 5.1 mm as well as left lower lobe me asuring 5.6 mm. Upper lobe emphysematous changes redemonstrated. No nodules identified. MEDIASTINUM: There are no greater than 1 cm hilar or mediastinal lymph nodes. No pericardial effusi on is seen. Thoracic aorta is of normal caliber. The heart is not enlarged. UPPER ABDOMEN: Mild hepatic steatosis. Cholecystectomy clips. OTHER: No additional significant abnormality is seen. IMPRESSION: 1. Stable pulmonary nodules.
== END | disposition home or self-care (01) ==
LOC: RADCTMAIN 09:45
PROVIDERS: ATTEND Internal Medicine Critical Care Medicine
DX: R91.1 Solitary pulmonary nodule (principal)
CPT/HCPCS: 71260; Q9967

== ENCOUNTER → 2021-01-25 | Outpatient (CLI) | payer OTHER ==
--- NOTE | 2021-01-26 06:49 | US ---
EXAMINATION TYPE: US thyroid st tissue head/neck DATE OF EXAM: 01/25/2021 COMPARISON: Chest CT December 23, 2020 CLINICAL HISTORY: E04.1 Thyroid nodule. nodule seen on carotid US scan recently GLAND SIZE: Right Lobe: 5.6 x 1.9 x 2.0 cm Overall Parenchyma: homogenous Left Lobe: 4.5 x 1.2 x 1.1 cm Overall Parenchyma: homogeneous Isthmus Thickness: 0.3 cm NODULES RIGHT: # of nodules measured on right: 1 1. 1.0 X 0.8 x 1.1 cm, mid, mixed cystic and solid, which is taller than wide, with smooth margins, without echogenic foci. Prior size: FIXTURE MAKER LEFT: # of nodules measured on left: 1 1. 0.7 X 0.3 x 0.6 cm, lower mixed cystic and solid, hypoechoic nodule, which is wider than tall, w ith smooth margins, without echogenic foci. Prior size: FIXTURE MAKER ISTHMUS: # of nodules measured in the isthmus: 0 Bilateral neck scanned, no evidence of lymphadenopathy. Slightly heterogeneous normal-sized thyroid with mixed nodule measuring 1.1 cm long axis right thyroi d lobe midpole level felt over measured by the technologist, I feel closer to 6 mm in size. Technolog ist also holliday a 7 mm hypoechoic solid nodule lower pole left thyroid lobe. IMPRESSION: As above. No suspicious greater than 1 cm thyroid nodules.
== END | disposition home or self-care (01) ==
LOC: RADUSWWP 16:51
PROVIDERS: ATTEND Family Medicine
DX: E04.1 Nontoxic single thyroid nodule (principal)
CPT/HCPCS: 76536

== ENCOUNTER 2021-02-22 08:56 | Day surgery (SDC) | payer OTHER ==
[2021-02-20 14:47] VITALS: BMI 28.7
[~2021-02-22 08:56] MED LIST: LACTATED RINGERS 1,000 ML IV SCH; LIDOCAINE 1% (10MG/ML) FOR IV START INTRADERMA PRN
[2021-02-22 09:26] VITALS: TEMP 97.6
[2021-02-22] MEDS ORDERED: PROPOFOL 10 MG/ML 20 ML VIAL IV ONE (09:43)
--- NOTE | 2021-02-22 10:04 | P.PCN ---
Date of Procedure: 02/22/21 Procedure(s) Performed: BRIEF HISTORY: Patient is a 50-year-old pleasant female scheduled for an elective colonoscopy as a part of screening for colorectal neoplasia. PROCEDURE PERFORMED: Colonoscopy. PREOPERATIVE DIAGNOSIS: Screening for colon cancer. IV sedation per Anesthesia. PROCEDURE: After informed consent was obtained, the patient, was brought into the endoscopy unit. IV sedation was administered by Anesthesia under continuous monitoring. Digital rectal examination was normal. Initially the Olympus CF-160 flexible video colonoscope was then inserted in the rectum, gradually advanced into the cecum without any difficulty. Careful examination was performed as the scope was gradually being withdrawn. Ileocecal valve and the appendiceal orifice were visualized and appeared normal. Prep was excellent. Mucosa of the cecum, ascending colon, transverse colon, descending colon, sigmoid colon, and rectum appeared normal. Retroflexion was performed in the rectum and no lesions were seen. The patient tolerated the procedure well. IMPRESSION: Normal-appearing colon from rectum to cecum with no evidence of colorectal neoplasia . RECOMMENDATIONS: Findings of this examination were discussed with the patient as well as a family.. She was advised to have a repeat screening colonoscopy in 10 years.
[2021-02-22 10:10] VITALS: BP 110/65; PULSE 74; RESP 18
== END 2021-02-22 10:38 | disposition home or self-care (01) ==
LOC: ORWHC2ENDO 08:56
PROVIDERS: ATTEND Internal Medicine Gastroenterology
DX: Z12.11 Encounter for screening for malignant neoplasm of colon (principal); E78.5 Hyperlipidemia, unspecified; F17.200 Nicotine dependence, unspecified, uncomplicated; K21.9 Gastro-esophageal reflux disease without esophagitis
CPT/HCPCS: 81025; G0121; J2704

== ENCOUNTER → 2021-08-31 | Outpatient (CLI) | payer OTHER ==
--- NOTE | 2021-08-31 11:02 | US ---
EXAMINATION TYPE: US thyroid st tissue head/neck DATE OF EXAM: 08/31/2021 COMPARISON: 01/25/2021 CLINICAL HISTORY: E04.1 NONTOXIC THYROID NODULE. follow up exam GLAND SIZE: Right Lobe: 5.6 x 1.8 x 2.5 cm Overall Parenchyma: heterogenous Left Lobe: 4.0 x 0.9 x 1.3 cm Overall Parenchyma: heterogeneous Isthmus Thickness: 0.3 cm NODULES RIGHT: # of nodules measured on right: 1 1. 0.6 X 0.6 x 0.5 cm, mid , cystic or almost completely cystic, anechoic nodule, with smooth margin s, without echogenic foci. Prior size: 1.0 x 0.8 x 1.1 cm LEFT: # of nodules measured on left: 1 1. 0.6 X 0.6 x 0.4 cm, lower , cystic or almost completely cystic, nodule, which is wider than tall , with smooth margins, without echogenic foci. Prior size: 0.7 x 0.3 x 0.6 cm ISTHMUS: # of nodules measured in the isthmus: 0 Bilateral neck scanned, no evidence of lymphadenopathy. IMPRESSION: Thyromegaly correlate for thyroiditis. Left thyroid nodule stable. Right thyroid nodule has reduced i n size relative to prior exam. 2017 ACR TI-RADS LEVEL: TR-RADS 2 - Not Suspicious: No FNA *Highest TI-RADS level nodule reported
== END | disposition home or self-care (01) ==
LOC: RADUSWWP 09:32
DX: E04.1 Nontoxic single thyroid nodule (principal)
CPT/HCPCS: 76536

== ENCOUNTER → 2021-12-18 | Outpatient (CLI) | payer OTHER ==
--- NOTE | 2021-12-19 14:27 | MM ---
Reason for Exam: Screening (asymptomatic). Last screening mammogram was performed 12 month(s) ago. Patient History: Menarche at age 12. First Full-Term at age 22. 2017, Benign Excisional Biopsy on the left side. Last menstrual period: 02/22/2021 Risk Values: Concepcion 5 year model risk: 1.1%. NCI Lifetime model risk: 9.1%. Prior Study Comparison: 08/25/2019 Screening Mammogram, [facility]. 12/14/2020 Bilateral Screening Mammogram, [facility]. Tissue Density: The breast tissue is heterogeneously dense. This may lower the sensitivity of mammography. Findings: Analyzed By CAD. A core markers within the left breast. No suspicious groups of microcalcifications, spiculated or lobular masses, architectural distortion or other secondary signs of malignancy are mammographically apparent. Overall Assessment: Benign, BI-RAD 2 Management: Screening Mammogram of both breasts in 1 year. A negative mammogram report should not preclude additional follow up of suspicious palpable abnormalities. Patient should continue monthly self breast exam. A clinical breast exam by your physician is recommended on an annual basis and results should be correlated with mammographic findings. Electronically signed and approved by: Win Castle D.O. Radiologis
== END | disposition home or self-care (01) ==
LOC: RADMAMWWP 11:32
PROVIDERS: ATTEND Physician Assistant
DX: Z12.31 Encounter for screening mammogram for malignant neoplasm of breast (principal)
CPT/HCPCS: 77067

== ENCOUNTER → 2022-04-13 | Outpatient (CLI) | payer OTHER ==
--- NOTE | 2022-04-13 16:02 | US ---
EXAMINATION TYPE: US carotid duplex BILAT DATE OF EXAM: 04/13/2022 COMPARISON: NONE CLINICAL HISTORY: R09.89 RT carotid bruit. bruit TECHNIQUE: Carotid duplex ultrasound examination. Indirect Doppler criteria was utilized. 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 Criteria for Assigning % of Stenosis / Diameter reduction (Estimation based on the indirect measurements of the internal carotid artery velocities (ICA PSV). 1. Normal (no stenosis)=ICA PSV < 125 cm/s: ratio < 2.0: ICA EDV<40 cm/s. 2. Less than 50% stenosis=ICA PSV < 125 cm/s: ratio < 2.0: ICA EDV<40 cm/s. 3. 50 to 69% stenosis=ICA PSV of 125 to 230 cm/s: ration 2.0 ? 4.0: ICA EDV 40-100 cm/s. 4. Greater than 70% stenosis to near occlusion= ICA PSV > 230 cm/s: ratio > 4.0: ICA EDV > 100 cm/s. 5. Near occlusion= ICA PSV velocities may be low or undetectable: variable ratio and ICA EDV. 6. Total occlusion=unable to detect flow.
== END | disposition home or self-care (01) ==
LOC: RADUSWWP 14:54
DX: R09.89 Other specified symptoms and signs involving the circulatory and respiratory systems (principal)
CPT/HCPCS: 93880

== ENCOUNTER → 2023-01-01 | Outpatient (CLI) | payer OTHER ==
--- NOTE | 2023-01-01 13:56 | MM ---
Reason for Exam: Screening (asymptomatic). Last mammogram was performed 1 year(s) and 1 month(s) ago. Patient History: Menarche at age 12. First Full-Term at age 22. 2017, Benign Excisional Biopsy on the left side. Risk Values: Concepcion 5 year model risk: 1.2%. NCI Lifetime model risk: 9.0%. Prior Study Comparison: 08/25/2019 Screening Mammogram, [facility]. 12/14/2020 Bilateral Screening Mammogram, [facility]. 12/18/2021 Bilateral MG screening mammo w CAD, [facility]. Tissue Density: The breast tissue is heterogeneously dense. This may lower the sensitivity of mammography. Findings: Analyzed By CAD. Right: Asymmetry 10.7 cm from the nipple on CC view measuring 17 mm. Left: There is no suspicious group of microcalcifications or new suspicious mass in either breast. Overall Assessment: Incomplete: need additional imaging evaluation, BI-RAD 0 Management: Diagnostic Mammogram of the right breast. [facility] will attempt to contact patient to return for supplemental views and ultrasound if indicated. Patient should continue monthly self-breast exams. A clinical breast exam by your physician is recommended on an annual basis. This exam should not preclude additional follow-up of suspicious palpable abnormalities. Note on Concepcion scores and lifetime risk: 1. A Concepcion score greater than 3% is considered moderate risk. If this is the case, consider specialist referral to assess eligibility for a risk reducing agent. 2. If overall lifetime risk for the development of breast cancer is 20% or higher, the patient may qualify for future screening with alternating mammogram and breast MRI. Electronically signed and approved by: Ryan Mathews DO
== END | disposition home or self-care (01) ==
LOC: RADMAMWWP 12:34
DX: Z12.31 Encounter for screening mammogram for malignant neoplasm of breast (principal)
CPT/HCPCS: 77067

== ENCOUNTER → 2023-01-08 | Outpatient (CLI) | payer OTHER ==
--- NOTE | 2023-01-08 14:46 | MM ---
Reason for Exam: Additional evaluation requested from abnormal screening. Last screening mammogram was performed less than 1 month ago. Patient History: Menarche at age 12. First Full-Term at age 22. Postmenopausal. Patient has history of breast feeding. 2017, Benign Excisional Biopsy on the left side. Risk Values: Concepcion 5 year model risk: 1.2%. NCI Lifetime model risk: 9.0%. Prior Study Comparison: 08/25/2019 Screening Mammogram, [facility]. 12/14/2020 Bilateral Screening Mammogram, [facility]. 12/18/2021 Bilateral MG screening mammo w CAD, [facility]. 01/01/2023 Bilateral MG screening mammo w CAD, [facility]. Tissue Density: Right: There are scattered fibroglandular densities. Findings: Analyzed By CAD. Under compression no persistent suspicious abnormal density is identified. Mediolateral view appears normal. No suspicious groups of microcalcifications, spiculated or lobular masses, architectural distortion or other secondary signs of malignancy are mammographically apparent. Overall Assessment: Probably benign, BI-RAD 3 Management: Diagnostic Mammogram of the right breast in 6 months. A negative mammogram report should not preclude additional follow up of suspicious palpable abnormalities. Patient should continue monthly self breast exam. A clinical breast exam by your physician is recommended on an annual basis and results should be correlated with mammographic findings. Electronically signed and approved by: Win Castle D.O. Radiologis
== END | disposition home or self-care (01) ==
LOC: RADMAMWWP 13:36
DX: R92.8 Other abnormal and inconclusive findings on diagnostic imaging of breast (principal); Z78.0 Asymptomatic menopausal state
CPT/HCPCS: 77061; 77065

== ENCOUNTER → 2023-07-09 | Outpatient (CLI) | payer OTHER ==
--- NOTE | 2023-07-09 13:13 | MM ---
Reason for Exam: Follow-up at short interval from prior study. Last screening mammogram was performed 6 month(s) ago. Patient History: Menarche at age 12. First Full-Term at age 22. Postmenopausal. Patient has history of breast feeding. 2017, Benign Excisional Biopsy on the left side. Risk Values: Concepcion 5 year model risk: 1.2%. NCI Lifetime model risk: 8.8%. Prior Study Comparison: 12/18/2021 Bilateral MG screening mammo w CAD, [facility]. 01/01/2023 Bilateral MG screening mammo w CAD, [facility]. 01/08/2023 Right MG 3D work up w/cad RT, [facility]. Tissue Density: Right: There are scattered fibroglandular densities. Findings: Analyzed By CAD. Area of concern/asymmetry is not definitively visualized and appears to be fibroglandular tissue,. No suspicious masses, calcifications or distortions. Overall Assessment: Negative, BI-RAD 1 Management: Screening Mammogram of both breasts in 1 year. Results were given to the patient verbally at the time of exam. Patient should continue monthly self-breast exams. A clinical breast exam by your physician is recommended on an annual basis. This exam should not preclude additional follow-up of suspicious palpable abnormalities. Note on Concepcion scores and lifetime risk: 1. A Concepcion score greater than 3% is considered moderate risk. If this is the case, consider specialist referral to assess eligibility for a risk reducing agent. 2. If overall lifetime risk for the development of breast cancer is 20% or higher, the patient may qualify for future screening with alternating mammogram and breast MRI. Electronically signed and approved by: Ryan Mathews DO
== END | disposition home or self-care (01) ==
LOC: RADMAMWWP 12:45
DX: R92.321 Mammographic fibroglandular density, right breast (principal); Z78.0 Asymptomatic menopausal state
CPT/HCPCS: 77061; 77065

== ENCOUNTER → 2024-07-13 | Outpatient (CLI) | payer OTHER ==
--- NOTE | 2024-07-13 16:34 | MM ---
Reason for Exam: Screening (asymptomatic). Last mammogram was performed 1 year(s) and 6 month(s) ago. Patient History: Menarche at age 12. First Full-Term at age 22. Postmenopausal. Patient has history of breast feeding. 2017, Benign Excisional Biopsy on the left side. Risk Values: Concepcion 5 year model risk: 1.2%. NCI Lifetime model risk: 8.7%. Prior Study Comparison: 01/01/2023 Bilateral MG screening mammo w CAD, [facility]. 01/08/2023 Right MG 3D work up w/cad RT, [facility]. 07/09/2023 Right MG 3D diag mammo w/cad RT, [facility]. Tissue Density: There are scattered areas of fibroglandular density. Findings: Analyzed By CAD. There is no suspicious group of microcalcifications or new suspicious mass in either breast. Overall Assessment: Negative, BI-RAD 1 Management: Screening Mammogram of both breasts in 1 year. Patient should continue monthly self-breast exams. A clinical breast exam by your physician is recommended on an annual basis. This exam should not preclude additional follow-up of suspicious palpable abnormalities. Note on Concepcion scores and lifetime risk: 1. A Concepcion score greater than 3% is considered moderate risk. If this is the case, consider specialist referral to assess eligibility for a risk reducing agent. 2. If overall lifetime risk for the development of breast cancer is 20% or higher, the patient may qualify for future screening with alternating mammogram and breast MRI. [facility], , 07/13/2024 4:32 PM. Electronically signed and approved by: Stacy Ochoa M.D. Radiologist
== END | disposition home or self-care (01) ==
LOC: RADMAMWWP 14:02
PROVIDERS: ATTEND Family Medicine
DX: Z12.31 Encounter for screening mammogram for malignant neoplasm of breast (principal); Z78.0 Asymptomatic menopausal state; R92.323 Mammographic fibroglandular density, bilateral breasts
CPT/HCPCS: 77063; 77067

== ENCOUNTER → 2024-07-28 | Outpatient (CLI) | payer OTHER | LOC: CPPFTMAIN 13:10 | PROVIDERS: ATTEND Family Medicine | DX: J44.9 Chronic obstructive pulmonary disease, unspecified (principal); F17.210 Nicotine dependence, cigarettes, uncomplicated; Z88.1 Allergy status to other antibiotic agents; Z88.0 Allergy status to penicillin | CPT/HCPCS: 94060; 94726; 94729 ==

== ENCOUNTER → 2025-01-12 | Outpatient (CLI) | payer OTHER ==
--- NOTE | 2025-01-12 13:10 | CTL ---
EXAMINATION TYPE: CT Low Dose Lung DATE OF EXAM ORDERED: 01/12/2025 COMPARISON: CT chest 12/23/2020, 06/07/2020, 07/28/2019 CLINICAL INDICATION: Female, 54 years old with history of Z12.2 ENCTR SCRN LUNG CANCER, F17.210; PHH, current smoker, 2 packs a day for 30 years, Lung cancer screening, History of Smoking/tobacco use. TECHNIQUE: Low dose computed tomography scan was performed through the chest at 1 mm thick sections a nd reconstructed images in multiple planes at 1 mm and [address] DLP: [address] CTDI: 2.68 mGy Automated exposure control for dose reduction was used. CT DIAGNOSTIC QUALITY: Satisfactory FINDINGS: Nodules: Stable right lower lobe superior segment 5.1 mm pulmonary nodule abutting the major fissure (series 8 , image 28). Stable left lower lobe subpleural 5.2 mm nodule (series 8, image 34). No new or enlarging pulmonary nodules. LUNGS: COPD: Severity: Mild centrilobular emphysematous changes. Fibrosis: Severity: None Lymph nodes: None Other findings: None RIGHT PLEURAL SPACE: Effusion: None Calcification: None Thickening: None Pneumothorax: None LEFT PLEURAL SPACE: Effusion: None Calcification: None Thickening: None Pneumothorax: None HEART: Heart Size: Normal Coronary Calcification: None Pericardial Effusion: Trace OTHER FINDINGS: Upper abdomen: None Bony thorax: None Supraclavicular region: None Other: None IMPRESSION: 1. Couple stable pulmonary nodules measuring less than 6 mm dating back to 2019 considered benign. N o new or enlarging pulmonary nodules. 2. Mild emphysematous changes. CT LUNG RAD AND CT CHEST RECOMMENDATION: Lung-Rad 2 Benign Appearance or Behavior: Continue annual sc reening with LDCT in 12 months. S Modifier (other clinically significant findings): None [facility], , 01/12/2025 1:08 PM
== END | disposition home or self-care (01) ==
LOC: RADCTMAIN 12:36
PROVIDERS: ATTEND Nurse Practitioner Acute Care
DX: Z12.2 Encounter for screening for malignant neoplasm of respiratory organs (principal); F17.210 Nicotine dependence, cigarettes, uncomplicated; J43.9 Emphysema, unspecified; R91.8 Other nonspecific abnormal finding of lung field
CPT/HCPCS: 71271